=== PATIENT | male | born 1980 | race American Indian/Alaskan Native ===

== ENCOUNTER 2017-06-21 06:25 | Day surgery (SDC) | payer OTHER ==
[2017-06-14 14:02] VITALS: BMI 23.6
[2017-06-21 06:58] VITALS: O2SAT 100
[2017-06-21] MEDS ORDERED: Propofol 10 mg/ml Inj (20 ML) ONE (07:42)
[2017-06-21] MEDS ORDERED: Sodium Chloride 0.9% 1,000 ML IV SCH (08:45)
[2017-06-21 09:19] VITALS: BP 1342/71; PULSE 66; RESP 16; TEMP 97.4
== END 2017-06-21 10:33 | disposition home or self-care (01) ==
LOC: ENDO 06:25
PROVIDERS: ATTEND Internal Medicine
DX: K62.1 Rectal polyp (principal); K63.5 Polyp of colon; K64.8 Other hemorrhoids; K62.5 Hemorrhage of anus and rectum
CPT/HCPCS: 45380; 88305; J2704; J7040 ×2